=== PATIENT | female | born 1955 | race Caucasian/White ===

== ENCOUNTER → 2018-09-02 | Outpatient (CLI) | payer OTHER ==
[2018-09-03 14:12] LABS: Stool Occult Bld Immuno 1 Negative (NEGATIVE)
== END ==
LOC: LAB SHORT 11:15 → LAB 11:15 → LAB FUT 08-24 09:35
PROVIDERS: Student in an Organized Health Care Education/Training Program
DX: Z12.11 Encounter for screening for malignant neoplasm of colon (principal); Z11.59 Encounter for screening for other viral diseases; I10 Essential (primary) hypertension
CPT/HCPCS: 82274

== ENCOUNTER → 2020-09-25 | Outpatient (CLI) | payer OTHER | END | disposition home or self-care (01) | LOC: LAB 08:01 → LAB SHORT 08:01 | DX: L82.1 Other seborrheic keratosis (principal) | CPT/HCPCS: 88305 ==

== ENCOUNTER → 2023-12-02 | Outpatient (CLI) | payer OTHER ==
[~2023-12-02] MED LIST: ACET325 PO; ATOR40TA PO; ESTR2 PO; FENO54 PO; METO25ER PO
[2023-12-02 19:38] LABS: BASOPHILS ABSOLUTE AUTO 0.04 K/mm3 (0.00-0.23); BASOPHILS PERCENT AUTO 1 % (0-2); EOSINOPHILS ABSOLUTE AUTO 0.14 K/mm3 (0.00-0.68); EOSINOPHILS PERCENT AUTO 2 % (0-6); Hematocrit 42.2 % (33.0-51.0); Hemoglobin 13.6 g/dL (11.5-16.0); IMMATURE GRAN ABSOLUTE AUTO 0.02 K/mm3 (0.00-0.10); IMMATURE GRAN PERCENT AUTO 0 % (0-1); LYMPHOCYTES ABSOLUTE AUTO 2.54 K/mm3 (0.84-5.20); LYMPHOCYTES PERCENT AUTO 33 % (21-46); MONOCYTES PERCENT AUTO 7 % (4-13); Mean Corpuscular HGB 27.4 pg (26.0-34.0); Mean Corpuscular HGB Conc 32.2 g/dL (31.5-36.5); Mean Corpuscular Volume 85 fL (80-100); Mean Platelet Volume 10.8 fL (9.1-12.4); NEUTROPHILS ABSOLUTE AUTO 4.39 K/mm3 (1.96-9.15); NEUTROPHILS PERCENT AUTO 58 % (41-73); Platelet Count 301 K/mm3 (150-400); RDW Coefficient Variation 13.9 % (11.7-14.2); Red Blood Cell Count 4.97 M/mm3 (3.80-5.20); White Blood Cell Count 7.63 K/mm3 (4.00-11.30)
[2023-12-02 20:30] LABS: Bun/Creatinine Ratio 15.8 (12.0-20.0); Calcium, Blood 9.8 mg/dL (8.5-10.1); Creatinine, Blood 1.01 mg/dL (0.40-1.00); Potassium, Blood 3.9 mmol/L (3.5-5.5)
== END | disposition home or self-care (01) ==
LOC: LAB SHORT 18:11 → LAB 18:11
PROVIDERS: Obstetrics & Gynecology
DX: Z01.812 Encounter for preprocedural laboratory examination (principal)
CPT/HCPCS: 80048; 85025

== ENCOUNTER 2023-12-09 08:31 | Day surgery (SDC) | payer OTHER ==
[2023-12-09] VITALS (13 sets, daily range): BP systolic 117–144; BP diastolic 51–77
[~2023-12-09] VITALS: Ht 165.1 cm; Wt 78.9 kg
[~2023-12-09 08:31] MED LIST changes: -ACET325 PO; -ATOR40TA PO; +CeFAZolin Sodium 2,000 MG in NS 100 ML IV SCH; -ESTR2 PO; -FENO54 PO; +Lactated Ringer's 1,000 ML IV SCH; -METO25ER PO
[2023-12-09] MEDS ORDERED: METO25ER PO (08:53)
[2023-12-09] MEDS ORDERED: FENO54 PO (08:54)
[2023-12-09] MEDS ORDERED: ESTR2 PO (08:54)
[2023-12-09] MEDS ORDERED: ATOR40TA PO (08:55)
--- NOTE | 2023-12-09 09:06 | NUR ---
Ambulatory in Day Surgery History, Chart, Medications and Allergies reviewed before start of procedure.Lungs clear T/O to Auscultation. Patient confirms NPO status and agrees with scheduled surgery. Patient States Post-Procedure ride home has been arranged.
[2023-12-09] MEDS ORDERED: Bupivacaine 0.5% HCl 5 MG/ML 30MLVIAL ONE (09:29)
[2023-12-09] MEDS ORDERED: Midazolam HCl 1MG / ML 2ML Vial IV ONE (09:40)
[2023-12-09] MEDS ORDERED: Midazolam HCl 1MG / ML 2ML Vial ONE (09:42)
[2023-12-09] MEDS ORDERED: FentaNYL Citrate 50 MCG/ML 2 ML Injection ONE (09:44)
[2023-12-09] MEDS ORDERED: propofoL 20 ML IV ONE (09:44)
[2023-12-09] MEDS ORDERED: Ondansetron HCl 2 MG / ML 2ML Vial ONE (09:45)
[2023-12-09] MEDS ORDERED: Dexamethasone Sod Phos 10 MG/ML 1ML VIAL ONE (09:45)
[2023-12-09] MEDS ORDERED: EpiNEPhrine 1 MG/1 ML 1ML Vial ONE (09:46)
--- NOTE | 2023-12-09 10:27 | NUR ---
12/09/23 1027 Nusrat Deleon BUPIVACAINE 0.5% MIXED WITH EPI BY DR. DIALLO AND POURED ONTO STERILE FIELD FOR USE DURING CASE.
[2023-12-09] MEDS ORDERED: Ketorolac Tromethamine 30mg Vial ONE (10:58)
[2023-12-09] MEDS ORDERED: Ondansetron HCl 2 MG / ML 2ML Vial IV PRN (11:20)
[2023-12-09] MEDS ORDERED: Metoclopramide HCl 10 MG Tab PO PRN (11:20)
[2023-12-09] MEDS ORDERED: Metoclopramide HCl 5MG / ML 2ML Vial IV PRN (11:20)
[2023-12-09] MEDS ORDERED: OxyCODONE HCL 5 MG TAB PO PRN (11:25)
[2023-12-09] MEDS ORDERED: Acetaminophen 325 MG TABLET PO PRN (11:25)
[2023-12-09] MEDS ORDERED: Ondansetron 4 MG TAB PO PRN (11:25)
[2023-12-09] MEDS ORDERED: HYDROmorphone HCl/Pf 1MG SYR IV PRN (11:25)
[2023-12-09] MEDS ORDERED: Simethicone 80 MG Chew PO PRN (11:25)
[2023-12-09] MEDS ORDERED: Naloxone HCl 0.4MG / ML 1ML Vial IV PRN (11:25)
[2023-12-09] MEDS ORDERED: Lactated Ringer's 1,000 ML IV SCH (11:45)
[2023-12-09] MEDS ORDERED: Ketorolac Tromethamine 15mg Vial IV PRN (11:45)
--- NOTE | 2023-12-09 12:19 | NUR ---
PT ARRIVED TO UNIT FROM PACU TRANSFERRED PT FROM [facility] TO BED. ORIENTED TO USE OF CALL LIGHT. PROVIDED BEVERAGES AND SNACKS. MEDICATED W/TYLENOL PER ORDERS FOR 3/10 PELVIC PAIN. SCANT AMOUNT SANG DRAINAGE NOTED ON SHAMAR PAD. WOOD CATH DRAINING LIGHT YELLOW URINE TO GRAVITY. VSS. CALL LIGHT IN REACH.
--- NOTE | 2023-12-09 17:27 | NUR ---
SUMMARY NO ACUTE CHANGES SINCE ARRIVING TO UNIT. PT GOT UP TO CHAIR BRIEFLY BUT C/O DISCOMFORT SO NOW BACK TO BED. REPORTS DISCOMFORT IMPROVED AND PAIN IS "FINE". DENIES ANY NEEDS AT THIS TIME. SMALL AMOUNT OF BLEEDIGN NOTED TO SHAMAR PAD AT 1600 FOCUSED POST OP ASSESSMENT. EVENING SITTER PLACED NEW SHAMAR PAD WHEN PT OOB. WOOD DRAINING LIGHT YELLOW URINE. CALL LIGHT IN REACH.
[2023-12-09] MEDS ORDERED: Atorvastatin 40 MG Tab PO SCH (21:00)
[2023-12-10 00:33] VITALS: BP 121/68
[2023-12-10 04:16] VITALS: BP 124/58
--- NOTE | 2023-12-10 06:57 | NUR ---
SUMMARY PT REPORTS TYLENOL EFFECTIVE FOR PAIN CONTROL.WOOD WITH YELLOW RETURN,SCANT BLEED ON SHAMAR PAD.
[2023-12-10 07:33] VITALS: BP 124/61
[2023-12-10] MEDS ORDERED: Fenofibrate 67 MG Cap PO SCH (09:00)
[2023-12-10] MEDS ORDERED: Estradiol 1 MG Tab PO SCH (09:00)
[2023-12-10] MEDS ORDERED: Metoprolol Succinate 50 MG TABCR PO SCH (09:00)
[2023-12-10] MEDS ORDERED: ACET325 PO (09:30)
--- NOTE | 2023-12-10 09:36 | NUR ---
PT PASSED VOIDING TRIAL VOIDED 300 ML AND BS SHOWED 22ML PVR. AMBULATED WITHOUT DIFFICULTY. TOLERATING PO.
[2023-12-10 10:05] VITALS: BP 127/62
--- NOTE | 2023-12-10 10:06 | NUR ---
DISCHARGING PT PASSED VOIDING TRIAL, IS AMBULATING AND TOLERATING PO. PAIN CONTROLLED W/TYLENOL. VSS. REVIEWED DC INSTRUCTIONS W/PT; VERBALIZED UNDERSTANDING. SIGNED DC PAPERWORK. GETTING DRESSED AND AWAITING RIDE.
--- NOTE | 2023-12-10 10:29 | NUR ---
DISCHARGED PT LEFT UNIT IN WC W/POSSESSIONS AND DC PAPERWORK IN HAND, ACCOMPANIED BY SPOUSE TO RIDE OUTSIDE.
== END 2023-12-10 10:28 | disposition home or self-care (01) ==
LOC: ORSCMMR 08:31 → ORD 10:00 → ORSCMMR 10:00 → SURS 11:41 → ORSCMMR 12-10 10:28
PROVIDERS: Obstetrics & Gynecology
PROC: 0JQC0ZZ Repair Pelvic Region Subcutaneous Tissue and Fascia, Open Approach (ICD-10-PCS; principal; 2023-12-09 10:00)
DX: N81.89 Other female genital prolapse (principal); Z79.899 Other long term (current) drug therapy
CPT/HCPCS: A9270; J0171; J0690; J1100; J1885; J2250; J2405; J2704; J3010; J7120

== ENCOUNTER → 2024-08-23 | Outpatient (CLI) | payer OTHER ==
[~2024-08-23] MED LIST changes: +ACET325 PO; +ATOR40TA PO; -CeFAZolin Sodium 2,000 MG in NS 100 ML IV SCH; +ESTR2 PO; +FENO54 PO; -Lactated Ringer's 1,000 ML IV SCH; +METO25ER PO
[2024-08-23 18:54] LABS: Microalb/Creat Ratio UR, Rand 4.296 mg/g (0.000-30.000); Microalbumin, Random Urine 6.83 mg/L (0.000-20.000)
== END | disposition home or self-care (01) ==
LOC: LAB SHORT 16:18 → LAB 16:18
PROVIDERS: Family Medicine
DX: N18.31 Chronic kidney disease, stage 3a (principal)
CPT/HCPCS: 82043; 82570